=== PATIENT | male | born 1985 | race Two or more races ===

== ENCOUNTER 2018-06-14 00:15 | Emergency (ER) | payer OTHER ==
[2018-06-14] MEDS ORDERED: LIDOCAINE 2% VISCOUS SOLN 20 ML UDCUP PO ONE (02:14)
--- NOTE | 2018-06-14 02:28 | ER Document Report ---
ED ENT - General Chief Complaint: Sore Throat Stated Complaint: DIFFICULTY SWALLOWING Time Seen by Provider: 06/14/18 01:47 Mode of Arrival: Ambulatory Information source: Patient Notes: Patient is a 33-year-old male presenting to the emergency department complaining of a foreign body sensation in his throat. Patient stated at 8:00 in the morning on 06/13/2018 he had foot surgery on his right foot for bone spurs. Patient states he is unsure if he was intubated with an ETT or an LMA. Patient stated since his surgery he has not been able to swallow anything. Patient states every time he tries to drink something he ends up spitting it out due to irritation in his throat. Patient has not tried to pass any food. Patient is actively spitting out his secretions. She denies chest pain, shortness of breath, nausea, vomiting, and fever. Patient states his voice is hoarse compared to normal. Patient has a past medical history of GERD, ADHD. Patient takes Adderall, omeprazole, ranitidine. Patient has no known drug allergies. TRAVEL OUTSIDE OF THE [place] IN LAST 30 DAYS: No - Related Data Allergies/Adverse Reactions: No Known Allergies Allergy (Verified 06/14/18 00:17) Past Medical History - General Information source: Patient - Social History Smoking Status: Never Smoker Lives with: Family Family History: Reviewed & Not Pertinent Review of Systems - Review of Systems Constitutional: No symptoms reported EENT: See HPI Cardiovascular: No symptoms reported Respiratory: No symptoms reported Gastrointestinal: No symptoms reported Genitourinary: No symptoms reported Male Genitourinary: No symptoms reported Musculoskeletal: No symptoms reported Skin: No symptoms reported Hematologic/Lymphatic: No symptoms reported Neurological/Psychological: No symptoms reported Physical Exam - Vital signs Vitals: Temp Pulse Resp BP Pulse Ox 98.0 F 97 16 141/81 H 98 06/14/18 00:20 06/14/18 00:20 06/14/18 00:20 06/14/18 00:20 06/14/18 00:20 - Notes Notes: GENERAL: Alert, interacts well. No acute distress. Patient actively spitting out secretions. HEAD: Normocephalic, atraumatic. EYES: Pupils equal, round, and reactive to light. Extraocular movements intact. ENT: Oral mucosa moist, tongue midline. No obvious foreign body or trauma noted in the pharynx. NECK: Full range of motion. Supple. Trachea midline. LUNGS: Clear to auscultation bilaterally, no wheezes, rales, or rhonchi. No respiratory distress. HEART: Regular rate and rhythm. No murmur ABDOMEN: Soft, non-tender. Non-distended. Bowel sounds present in all 4 quadrants. EXTREMITIES: Moves all 4 extremities spontaneously. No edema, normal radial and dorsalis pedis pulses bilaterally. No cyanosis. BACK: no cervical, thoracic, lumbar midline tenderness. No saddle anesthesia, normal distal neurovascular exam. NEUROLOGICAL: Alert and oriented x3. Normal speech. PSYCH: Normal affect, normal mood. SKIN: Warm, dry, normal turgor. No rashes or lesions noted. Course - Re-evaluation Re-evalutation: Upon reexam patient states he feels as though "more can go down now." Patient is also now complaining of acid indigestion and heartburn. Patient states this is exactly as his acid reflux feels, he has not yet taken any of his home meds for this. Carafate and Maalox ordered. Will try p.o. challenge reassess. Post Maalox and Carafate patient able to swallow a full glass of water. Patient requesting discharge. Viscous lidocaine prescription given, patient states he has Carafate at home. Return precautions given. - Vital Signs Vital signs: Temp Pulse Resp BP Pulse Ox 98.0 F 97 16 141/81 H 98 06/14/18 00:20 06/14/18 00:20 06/14/18 00:20 06/14/18 00:20 06/14/18 00:20 Discharge - Discharge Clinical Impression: Dysphagia Qualifiers: Dysphagia type: unspecified Qualified Code(s): R13.10 - Dysphagia, unspecified Condition: Stable Disposition: HOME, SELF-CARE Instructions: Acid-Suppressing Medication ([facility]), Dysphagia ([facility]) Additional Instructions: You have been diagnosed with irritation of your throat, difficulty swallowing. For the next 24-48 hours you should only attempt to drink clear liquids. Follow -up with primary care in 12-24 hours, call your surgeon to tell them what happened. If at any time you have shortness of breath, chest pain, or cannot swallow again return to the emergency department. Prescriptions: Lidocaine HCl [Lidocaine HCl Viscous] 15 mg MM ASDIR PRN #100 ml PRN Reason: Forms: Return to Work
--- NOTE | 2018-06-14 02:54 | RADIOLOGY REPORT (SQ) ---
EXAM DESCRIPTION: XR NECK SOFT TISSUE COMPLETED DATE/TME: 06/14/2018 02:13 CLINICAL HISTORY: 33 years Male, FB sensation COMPARISON: None. Findings: Patent nasopharynx and airway. No radiopaque foreign body. Normal prevertebral soft tissues. Normal alignment, curvature, and vertebral heights of the cervical spine. Bones, joints, and soft tissues of the XR NECK SOFT TISSUE appear otherwise unremarkable. IMPRESSION: No acute findings.
[2018-06-14] MEDS ORDERED: SUCRALFATE SUSP 1 GM/10 ML UDCUP PO ONE (03:17)
[2018-06-14] MEDS ORDERED: MAG HYDROX/AL HYDROX/SIMETH SUSP 30 ML UDCUP PO ONE (03:18)
[2018-06-14 03:44] VITALS: BP 126/69
== END 2018-06-14 03:44 | disposition home or self-care (01) ==
LOC: ER 00:15
DX: K21.9 Gastro-esophageal reflux disease without esophagitis (principal); R13.10 Dysphagia, unspecified; R09.89 Other specified symptoms and signs involving the circulatory and respiratory systems; R49.0 Dysphonia; F90.9 Attention-deficit hyperactivity disorder, unspecified type; Z79.899 Other long term (current) drug therapy; Z98.890 Other specified postprocedural states
CPT/HCPCS: 99283; 70360; J3490